=== PATIENT | male | born 1985 | race Native Hawaiian/Other Pacific Islander ===

== ENCOUNTER 2021-10-21 12:38 | Emergency (ER) | payer OTHER ==
--- NOTE | 2021-10-21 13:55 | ED ---
General Adult HPI - General Chief complaint: Chest Pain Stated complaint: chest pain Time Seen by Provider: 10/21/21 12:55 Source: patient Mode of arrival: wheelchair Limitations: no limitations - History of Present Illness Initial comments: 36 year-old male patient presents for evaluation of chest pain and elevated blood pressures. States that he has been having chest pain for a long time. States it has been more persistent this week. States his blood pressures have been elevated all week as well. States he is having weakness in his left arm. Left sided chest and shoulder pain. Posterior headache and intermittent dizziness. Denies shortness of breath. Reports intermittent sweats. Denies nausea or vomiting. States that he was given prescription for blood pressure medication but never started it due to fear of side effects. Patient denies any recent rash, fever, chills, cough, abdominal pain, diarrhea, constipation, back pain, numbness, tingling, hematuria, dysuria, urinary urgency, urinary frequency, visual changes, or any other complaints. - Related Data Previous Rx's Medication Instructions Recorded hydroCHLOROthiazide [Hydrodiuril] 25 mg PO DAILY #30 tab 10/21/21 Allergies Allergy/AdvReac Type Severity Reaction Status Date / Time No Known Allergies Allergy Verified 10/21/21 13:41 Review of Systems ROS Statement: Those systems with pertinent positive or pertinent negative responses have been documented in the HPI. ROS Other: All systems not noted in ROS Statement are negative. Past Medical History Past Medical History: Hypertension History of Any Multi-Drug Resistant Organisms: None Reported Past Surgical History: Cholecystectomy Past Psychological History: No Psychological Hx Reported Smoking Status: Current every day smoker Past Alcohol Use History: None Reported Past Drug Use History: None Reported General Exam Limitations: no limitations General appearance: alert, in no apparent distress, other (This is a well- developed, well-nourished adult male in no acute distress. ) Eye exam: Present: normal appearance, PERRL, EOMI. Absent: scleral icterus, conjunctival injection, nystagmus, periorbital swelling ENT exam: Present: normal exam, normal oropharynx, mucous membranes moist Respiratory exam: Present: normal lung sounds bilaterally. Absent: respiratory distress, wheezes, rales, rhonchi, stridor Cardiovascular Exam: Present: regular rate, normal rhythm, normal heart sounds. Absent: systolic murmur, diastolic murmur, rubs, gallop, clicks GI/Abdominal exam: Present: soft, normal bowel sounds. Absent: distended, tenderness, guarding, rebound, rigid Neurological exam: Present: alert, oriented X3, CN II-XII intact Expanded Speech: Present: fluid speech Cranial nerves: Nystagmus: Normal Motor strength exam: RUE: 5, LUE: 5, RLE: 5, LLE: 5 Psychiatric exam: Present: normal affect, normal mood Skin exam: Present: warm, dry, intact, normal color. Absent: rash Course Vital Signs 10/21/21 10/21/21 10/21/21 12:50 13:37 16:08 Temperature 97.6 F Pulse Rate 79 80 89 Respiratory 16 18 18 Rate Blood Pressure 181/103 164/104 165/115 O2 Sat by Pulse 98 98 100 Oximetry EKG Findings - EKG Comments: EKG Findings:: EKG obtained at 1304 shows normal sinus rhythm with sinus arrhythmia. Ventricular rate is 73, MS interval 152, QRS duration 84, QT 384, QTC 423. No evidence of ST elevation or depression. Medical Decision Making - Medical Decision Making 36-year-old male patient presented to the emergency department today for evalu ation of left-sided chest pain and elevated blood pressures for the last week. Physical examination is unremarkable. Lungs are clear to auscultation with good air movement. EKG was unremarkable. Blood pressures were elevated in the department. CT brain was negative. Was given a dose of labetalol. His blood pressures did improve mildly. To be discharged home with prescription for hydrochlorothiazide 25 mg daily. He is given 1 month prescription instructed to follow-up with his primary care physician for recheck as soon as possible. Instructed to keep a log of his blood pressures. Return parameters were discussed in detail. He verbalizes understanding and agrees with this plan. My attending is Dr. Montiel. - Lab Data Result diagrams: 10/21/21 13:37 10/21/21 13:37 Lab Results 10/21/21 10/21/21 10/21/21 Range/Units 13:37 13:37 13:37 WBC 7.6 (3.8-10.6) k/uL RBC 6.09 H (4.30-5.90) m/uL Hgb 17.5 (13.0-17.5) gm/dL Hct 52.0 (39.0-53.0) % MCV 85.4 (80.0-100.0) fL MCH 28.8 (25.0-35.0) pg MCHC 33.7 (31.0-37.0) g/dL RDW 13.0 (11.5-15.5) % Plt Count 262 (150-450) k/uL MPV 9.3 Neutrophils % 56 % Lymphocytes % 30 % Monocytes % 6 % Eosinophils % 6 % Basophils % 1 % Neutrophils # 4.2 (1.3-7.7) k/uL Lymphocytes # 2.3 (1.0-4.8) k/uL Monocytes # 0.4 (0-1.0) k/uL Eosinophils # 0.5 (0-0.7) k/uL Basophils # 0.0 (0-0.2) k/uL PT 10.4 (9.0-12.0) sec INR 1.0 (<1.2) APTT 25.2 (22.0-30.0) sec Sodium 142 (137-145) mmol/L Potassium 3.9 (3.5-5.1) mmol/L Chloride 102 (98-107) mmol/L Carbon Dioxide 26 (22-30) mmol/L Anion Gap 14 mmol/L BUN 10 (9-20) mg/dL Creatinine 1.07 (0.66-1.25) mg/dL Est GFR (CKD-EPI)AfAm >90 (>60 ml/min/1.73 sqM) Est GFR (CKD-EPI)NonAf >90 (>60 ml/min/1.73 sqM) Glucose 88 (74-99) mg/dL Calcium 9.7 (8.4-10.2) mg/dL Magnesium 2.0 (1.6-2.3) mg/dL Total Bilirubin 0.6 (0.2-1.3) mg/dL AST 22 (17-59) U/L ALT 24 (4-49) U/L Alkaline Phosphatase 91 (38-126) U/L Troponin I (0.000-0.034) ng/mL Total Protein 8.2 (6.3-8.2) g/dL Albumin 4.6 (3.5-5.0) g/dL Lipase 84 (23-300) U/L 12/25/21 Range/Units 13:37 WBC (3.8-10.6) k/uL RBC (4.30-5.90) m/uL Hgb (13.0-17.5) gm/dL Hct (39.0-53.0) % MCV (80.0-100.0) fL MCH (25.0-35.0) pg MCHC (31.0-37.0) g/dL RDW (11.5-15.5) % Plt Count (150-450) k/uL MPV Neutrophils % % Lymphocytes % % Monocytes % % Eosinophils % % Basophils % % Neutrophils # (1.3-7.7) k/uL Lymphocytes # (1.0-4.8) k/uL Monocytes # (0-1.0) k/uL Eosinophils # (0-0.7) k/uL Basophils # (0-0.2) k/uL PT (9.0-12.0) sec INR (<1.2) APTT (22.0-30.0) sec Sodium (137-145) mmol/L Potassium (3.5-5.1) mmol/L Chloride (98-107) mmol/L Carbon Dioxide (22-30) mmol/L Anion Gap mmol/L BUN (9-20) mg/dL Creatinine (0.66-1.25) mg/dL Est GFR (CKD-EPI)AfAm (>60 ml/min/1.73 sqM) Est GFR (CKD-EPI)NonAf (>60 ml/min/1.73 sqM) Glucose (74-99) mg/dL Calcium (8.4-10.2) mg/dL Magnesium (1.6-2.3) mg/dL Total Bilirubin (0.2-1.3) mg/dL AST (17-59) U/L ALT (4-49) U/L Alkaline Phosphatase (38-126) U/L Troponin I <0.012 (0.000-0.034) ng/mL Total Protein (6.3-8.2) g/dL Albumin (3.5-5.0) g/dL Lipase (23-300) U/L - Radiology Data Radiology results: report reviewed, image reviewed Two-view x-ray of the chest is obtained. Report is reviewed in its entirety. Impression by Dr. Beckham shows hyperinflation a related depth of inspiration her underlying emphysema. Correlate clinically. Otherwise no acute cardiopulmonary process. CT brain without contrast was obtained. Report was reviewed in its entirety. Impression by Dr. Beckham shows no acute intracranial abnormalities seen. Moderate chronic paranasal sinus disease, moderate to severe in the ethmoid air cells. Disposition Clinical Impression: Hypertension Disposition: HOME SELF-CARE Condition: Good Instructions (If sedation given, give patient instructions): DASH Eating Plan (ED), Hypertension (ED) Additional Instructions: Take medication as directed. Keep a log of your blood pressures for your primary care physician to better evaluate your needs. Return to the emergency department for any new, worsening, or concerning symptoms. Prescriptions: hydroCHLOROthiazide [Hydrodiuril] 25 mg PO DAILY #30 tab Is patient prescribed a controlled substance at d/c from ED?: No Referrals: Luis Enrique Smalls DO [Primary Care Provider] - 1-2 days Time of Disposition: 16:25
[2021-10-21 13:57] LABS: Basophils % (A) 1 %; Eosinophils # (A) 0.5 k/uL (0-0.7); Eosinophils % (A) 6 %; HGB 17.5 gm/dL (13.0-17.5); Lymphocytes # (A) 2.3 k/uL (1.0-4.8); Lymphocytes % (A) 30 %; MCH 28.8 pg (25.0-35.0); MCHC 33.7 g/dL (31.0-37.0); MCV 85.4 fL (80.0-100.0); Mean Platelet Volume 9.3; Monocytes # (A) 0.4 k/uL (0-1.0); Monocytes % (A) 6 %; Neutrophils # (A) 4.2 k/uL (1.3-7.7); Neutrophils % (A) 56 %; Platelet Count 262 k/uL (150-450); RBC 6.09 m/uL (4.30-5.90); WBC 7.6 k/uL (3.8-10.6)
[2021-10-21 14:02] LABS: Partial Thromboplastin Time 25.2 sec (22.0-30.0); Prothrombin Time 10.4 sec (9.0-12.0)
[2021-10-21 14:06] LABS: ALT 24 U/L (4-49); AST 22 U/L (17-59); African American GFR (CKD) >90 (>60 ml/min/1.73 sqM); Albumin 4.6 g/dL (3.5-5.0); Alkaline Phosphatase 91 U/L (38-126); Anion Gap 14 mmol/L; Blood Urea Nitrogen 10 mg/dL (9-20); Calcium 9.7 mg/dL (8.4-10.2); Carbon Dioxide 26 mmol/L (22-30); Chloride 102 mmol/L (98-107); Glucose 88 mg/dL (74-99); Lipase 84 U/L (23-300); Non-African American GFR(CKD) >90 (>60 ml/min/1.73 sqM); Potassium 3.9 mmol/L (3.5-5.1); Sodium 142 mmol/L (137-145); Total Bilirubin 0.6 mg/dL (0.2-1.3); Total Protein 8.2 g/dL (6.3-8.2)
--- NOTE | 2021-10-21 14:52 | XR ---
EXAMINATION TYPE: XR chest 2V DATE OF EXAM: 10/21/2021 COMPARISON: None HISTORY: 36-year-old male with chest pain and hypertension TECHNIQUE: PA and lateral views FINDINGS: The cardiomediastinal silhouette, aorta, and pulmonary vasculature are within normal limits. Mild hyp erinflation. Lungs and pleural spaces are clear. IMPRESSION: Hyperinflation may relate to depth of inspiration or underlying emphysema. Clinically correlate. Othe rwise, no acute cardiopulmonary process.
--- NOTE | 2021-10-21 15:49 | CT ---
EXAMINATION TYPE: CT brain wo con DATE OF EXAM: 10/21/2021 COMPARISON: None HISTORY: 36-year-old male hypertension, headaches TECHNIQUE: Examination was done in axial plane without intravenous contrast. Coronal and sagittal r econstructions performed. CT DLP: 1056.4 mGycm Automated exposure control for dose reduction was used. FINDINGS: There is no evidence of acute intracranial hemorrhage, acute ischemic changes, mass, mass-effect, or extra-axial fluid collection. There is no effacement of cerebral sulci or basal subarachnoid cister ns. There is no hydrocephalus. There is no midline shift. Travis-white matter distinction is preserv ed. Leftward nasal septal deviation. Moderate to severe mucosal thickening throughout the ethmoid air karyna ls and [id number] within the maxillary sinuses. Some partially visualized periodontal disease w ithin the maxilla. Possible small old blowout fracture medial right orbital wall on axial image 21. Otherwise, orbits an d globes appear intact. Mastoid air cells well pneumatized. IMPRESSION: No acute intracranial abnormality seen. Moderate chronic paranasal sinus disease, more moderate to se abbey in the ethmoid air cells.
[2021-10-21] MEDS: LABETALOL 5 MG/ML VIAL MDV IVP STA (16:05)
[2021-10-21 16:50] VITALS: BP 162/103; PULSE 79; RESP 16; TEMP 96.8
== END 2021-10-21 16:45 | disposition home or self-care (01) ==
LOC: EC 12:38
DX: I10 Essential (primary) hypertension (principal); F17.200 Nicotine dependence, unspecified, uncomplicated
CPT/HCPCS: 36415; 70450; 71046; 80053; 83690; 83735; 84484; 85025; 85610; 85730; 93005; 96374; 99285

== ENCOUNTER → 2023-08-21 | Outpatient (CLI) | payer SELFPAY ==
--- NOTE | 2023-08-21 13:44 | US ---
EXAMINATION TYPE: US scrotum with doppler. Grayscale and color Doppler Duplex imaging performed of becky olson scrotum. DATE OF EXAM: 08/21/2023 COMPARISON: NONE CLINICAL INDICATION: Male, 38 years old with history of N50.89 RT TESTICLE PAIN; Rt testicle pain beg an a few days ago, getting worse, no swelling EXAM MEASUREMENTS: TESTICLES: Right Testicle: 4.0x2.3x2.7 cm Left Testicle: 4.1x2.2x2.5 cm EPIDIDYMIS HEAD: Right Epididymis: 0.7 cm Left Epididymis: 0.7 cm Doppler performed to assess for testicular vascularity; good bilateral color flow and waveforms are s een. There is no evidence of testicular torsion. Presence of hydroceles: no Presence of varicoceles: left IMPRESSION: 1. Unremarkable scrotal ultrasound
== END | disposition home or self-care (01) ==
LOC: RADUSWWP 12:54
PROVIDERS: ATTEND Family Medicine
DX: N50.89 Other specified disorders of the male genital organs (principal)
CPT/HCPCS: 76870; 93975

== ENCOUNTER 2024-08-10 17:27 | Observation (INO) | payer OTHER ==
[2024-08-10 18:16] LABS: Basophils # (A) 0.1 k/uL (0-0.2); Basophils % (A) 1 %; Eosinophils # (A) 0.5 k/uL (0-0.7); Eosinophils % (A) 4 %; HCT 51.8 % (39.0-53.0); Lymphocytes # (A) 2.4 k/uL (1.0-4.8); Lymphocytes % (A) 21 %; MCH 28.1 pg (25.0-35.0); MCHC 34.8 g/dL (31.0-37.0); MCV 80.7 fL (80.0-100.0); Mean Platelet Volume 8.3; Monocytes # (A) 0.5 k/uL (0-1.0); Monocytes % (A) 4 %; Neutrophils # (A) 7.9 k/uL (1.3-7.7); Neutrophils % (A) 69 %; Platelet Count 312 k/uL (150-450); RBC 6.42 m/uL (4.30-5.90); RDW 13.8 % (11.5-15.5); WBC 11.4 k/uL (3.8-10.6)
[2024-08-10 18:25] LABS: Partial Thromboplastin Time 25.7 sec (22.0-30.0); Prothrombin Time 10.6 sec (10.0-12.5)
[2024-08-10 18:26] LABS: ALT 31 U/L (4-49); AST 22 U/L (17-59); African American GFR (CKD) 88 (>60 ml/min/1.73 sqM); Albumin 4.5 g/dL (3.5-5.0); Alkaline Phosphatase 102 U/L (38-126); Anion Gap 13 mmol/L; Blood Urea Nitrogen 9 mg/dL (9-20); Calcium 9.4 mg/dL (8.4-10.2); Carbon Dioxide 24 mmol/L (22-30); Chloride 105 mmol/L (98-107); Glucose 120 mg/dL (74-99); Magnesium 1.8 mg/dL (1.6-2.3); Non-African American GFR(CKD) 76 (>60 ml/min/1.73 sqM); Potassium 3.4 mmol/L (3.5-5.1); Sodium 142 mmol/L (137-145); Total Bilirubin 0.7 mg/dL (0.2-1.3); Total Protein 7.9 g/dL (6.3-8.2)
[2024-08-10] MEDS: LABETALOL 5 MG/ML VIAL MDV IVP STA (19:21)
[2024-08-10] MEDS: hydrALAZINE HCL 20 MG/ML 1 ML VIAL IVP STA (20:44)
[2024-08-10] MEDS: SODIUM CHLORIDE 0.9% 1,000 ML IV ONE ×2 (21:10→23:46)
[2024-08-10] MEDS: ONDANSETRON 4 MG/2 ML VIAL IVP STA (22:02)
--- NOTE | 2024-08-11 00:01 | ED ---
Headache HPI - General Chief Complaint: Headache Stated Complaint: Headache Time Seen by Provider: 08/10/24 18:25 Mode of arrival: ambulatory Limitations: no limitations - History of Present Illness Initial Comments: 39-year-old male with past medical history of hypertension who presents the emergency department reporting headache. States that he has had a headache for the past couple of days. Is located on the left side of his head. He denies taking anything for the pain. Also complaining of some chest pain and lightheadedness. Upon hospital arrival the patient's blood pressure is found to be extremely high. Admits to a history of high blood pressure however does not take any medications for it. He has not checked his blood pressure at home like he is supposed to over the past year. He denies any fevers. Does have some blurred vision. No other alleviating, precipitating modifying factors - Related Data Previous Rx's Medication Instructions Recorded hydroCHLOROthiazide [Hydrodiuril] 25 mg PO DAILY #30 tab 10/21/21 Allergies Allergy/AdvReac Type Severity Reaction Status Date / Time Penicillins Allergy Rash/Hives Verified 08/10/24 17:48 Review of Systems ROS Statement: Those systems with pertinent positive or pertinent negative responses have been documented in the HPI. ROS Other: All systems not noted in ROS Statement are negative. Past Medical History Past Medical History: Hypertension History of Any Multi-Drug Resistant Organisms: None Reported Past Surgical History: Cholecystectomy Past Psychological History: No Psychological Hx Reported Smoking Status: Current every day smoker Past Alcohol Use History: Occasional Past Drug Use History: None Reported General Exam Limitations: no limitations General appearance: alert, in no apparent distress Head exam: Present: atraumatic, normocephalic, normal inspection Eye exam: Present: normal appearance, PERRL, EOMI. Absent: scleral icterus, conjunctival injection, periorbital swelling ENT exam: Present: normal exam, mucous membranes moist Neck exam: Present: normal inspection. Absent: tenderness, meningismus, lymphadenopathy Respiratory exam: Present: normal lung sounds bilaterally. Absent: respiratory distress, wheezes, rales, rhonchi, stridor Cardiovascular Exam: Present: regular rate, normal rhythm, normal heart sounds. Absent: systolic murmur, diastolic murmur, rubs, gallop, clicks GI/Abdominal exam: Present: soft, normal bowel sounds. Absent: distended, tenderness, guarding, rebound, rigid Extremities exam: Present: normal inspection, full ROM, normal capillary refill. Absent: tenderness, pedal edema, joint swelling, calf tenderness Back exam: Present: normal inspection Neurological exam: Present: alert, oriented X3, CN II-XII intact Psychiatric exam: Present: normal affect, normal mood Skin exam: Present: warm, dry, intact, normal color. Absent: rash Course Vital Signs 08/10/24 08/10/24 08/10/24 17:43 20:11 22:30 Temperature 98.2 F Pulse Rate 94 81 77 Respiratory 18 17 18 Rate Blood Pressure 199/126 180/122 151/102 O2 Sat by Pulse 99 98 96 Oximetry 08/11/24 00:45 Temperature Pulse Rate 98 Respiratory 18 Rate Blood Pressure 129/110 O2 Sat by Pulse 99 Oximetry Medical Decision Making - Medical Decision Making Was pt. sent in by a medical professional or institution (SHAKILA Cummings, COMPLAINT EVALUATION SUPERVISOR, urgent care, hospital, or jail...) When possible be specific @ -No Did you speak to anyone other than the patient for history (EMS, parent, family, police, friend...)? What history was obtained from this source @ -No Did you review nursing and triage notes (agree or disagree)? Why? @ -I reviewed and agree with nursing and triage notes Were old charts reviewed (outside hosp., previous admission, EMS record, old EKG, old radiological studies, urgent care reports/EKG's, jail records)? Report findings @ -No old charts were reviewed Differential Diagnosis (chest pain, altered mental status, abdominal pain women, abdominal pain men, vaginal bleeding, weakness, fever, dyspnea, syncope, headache, dizziness, GI bleed, back pain, seizure, CVA, palpatations, mental health, musculoskeletal)? @ -Differential Headache: Migraine, tension, cluster, carbon monoxide, central venous thrombosis, pension karma temporal arteritis, acute closure glaucoma, intercranial hemorrhage, mas toiditis, sinusitis, head injury, this is not meant to be an all-inclusive list. EKG interpreted by me (3pts min.). @ - Completed at 1753 demonstrates sinus rhythm with a rate of 84. DC interval 157. QRS 76. QTc of 416. No acute ST segment elevations or depressions Repeat x-ray done at 2348 demonstrates A-fib with a rate of 128. QRS 84. QTc of 413. No acute ST segment elevations or depressions X-rays interpreted by me (1pt min.). @ -Yes and demonstrates no acute process CT interpreted by me (1pt min.). @ -Yes and demonstrates no acute process U/S interpreted by me (1pt. min.). @ -None done What testing was considered but not performed or refused? (CT, X-rays, U/S, labs)? Why? @ -None What meds were considered but not given or refused? Why? @ -Cardizem to control patient's rate however it is less than 120 consistently Did you discuss the management of the patient with other professionals (professionals i.e. , PA, COMPLAINT EVALUATION SUPERVISOR, lab, RT, psych nurse, manager social media, diesel power mechanic, teacher, senior credit officer, gearcase assembler)? Give summary @ -Spoke with Dr. Centeno for admission Was smoking cessation discussed for >3mins.? @ -No Was critical care preformed (if so, how long)? @ -No Were there social determinants of health that impacted care today? How? (Homelessness, low income, unemployed, alcoholism, drug addiction, transportation, low edu. Level, literacy, decrease access to med. care, retirement, rehab)? @ -No Was there de-escalation of care discussed even if they declined (Discuss DNR or withdrawal of care, Hospice)? DNR status @ -No What co-morbidities impacted this encounter? (DM, HTN, Smoking, COPD, CAD, Cancer, CVA, ARF, Chemo, Hep., AIDS, mental health diagnosis, sleep apnea, morbid obesity)? @ -Hypertension Was patient admitted / discharged? Hospital course, mention meds given and route, prescriptions, significant lab abnormalities, going to OR and other pertinent info. @ -Upon arrival patient seen and evaluated in room 21. Thorough history and physical exam was performed. IV access was established and laboratory studies are conducted. Patient was given labetalol without any improvement in his blood pressure. He is then given 20 mg of hydralazine. I ordered Tylenol and Zofran for the patient's headache however he refused these medications. Patient does appear to change rhythm and a repeat EKG was performed which demonstrates A-fib. CT was performed which demonstrates no acute intracranial process. I discussed results with the patient. Recommended admission for accelerated hypertension and new onset A-fib for which patient was agreeable. Spoke with Dr. Centeno for admission Undiagnosed new problem with uncertain prognosis? @ -No Drug Therapy requiring intensive monitoring for toxicity (Heparin, Nitro, Insulin, Cardizem)? @ -No Were any procedures done? @ -No Diagnosis/symptom? @ -Acute cephalgia, accelerated hypertension, new onset A-fib Acute, or Chronic, or Acute on Chronic? @ -Acute Uncomplicated (without systemic symptoms) or Complicated (systemic symptoms)? @ -Complicated Side effects of treatment? @ -No Exacerbation, Progression, or Severe Exacerbation? @ -No Poses a threat to life or bodily function? How? (Chest pain, USA, ME, pneumonia, PE, COPD, DKA, ARF, appy, cholecystitis, CVA, Diverticulitis, Homicidal, Suic idal, threat to staff... and all critical care pts) @ -No - Lab Data Result diagrams: 08/10/24 17:57 08/10/24 17:57 Lab Results 08/10/24 08/10/24 08/10/24 Range/Units 17:57 17:57 17:57 WBC 11.4 H (3.8-10.6) k/uL RBC 6.42 H (4.30-5.90) m/uL Hgb 18.0 H (13.0-17.5) gm/dL Hct 51.8 (39.0-53.0) % MCV 80.7 (80.0-100.0) fL MCH 28.1 (25.0-35.0) pg MCHC 34.8 (31.0-37.0) g/dL RDW 13.8 (11.5-15.5) % Plt Count 312 (150-450) k/uL MPV 8.3 Neutrophils % 69 % Lymphocytes % 21 % Monocytes % 4 % Eosinophils % 4 % Basophils % 1 % Neutrophils # 7.9 H (1.3-7.7) k/uL Lymphocytes # 2.4 (1.0-4.8) k/uL Monocytes # 0.5 (0-1.0) k/uL Eosinophils # 0.5 (0-0.7) k/uL Basophils # 0.1 (0-0.2) k/uL PT 10.6 (10.0-12.5) sec INR 1.0 (<1.2) APTT 25.7 (22.0-30.0) sec Sodium 142 (137-145) mmol/L Potassium 3.4 L (3.5-5.1) mmol/L Chloride 105 (98-107) mmol/L Carbon Dioxide 24 (22-30) mmol/L Anion Gap 13 mmol/L BUN 9 (9-20) mg/dL Creatinine 1.21 (0.66-1.25) mg/dL Est GFR (CKD-EPI)AfAm 88 (>60 ml/min/1.73 sqM) Est GFR (CKD-EPI)NonAf 76 (>60 ml/min/1.73 sqM) Glucose 120 H (74-99) mg/dL Calcium 9.4 (8.4-10.2) mg/dL Magnesium 1.8 (1.6-2.3) mg/dL Total Bilirubin 0.7 (0.2-1.3) mg/dL AST 22 (17-59) U/L ALT 31 (4-49) U/L Alkaline Phosphatase 102 (38-126) U/L Troponin I (0.000-0.034) ng/mL Total Protein 7.9 (6.3-8.2) g/dL Albumin 4.5 (3.5-5.0) g/dL 08/10/24 Range/Units 17:57 WBC (3.8-10.6) k/uL RBC (4.30-5.90) m/uL Hgb (13.0-17.5) gm/dL Hct (39.0-53.0) % MCV (80.0-100.0) fL MCH (25.0-35.0) pg MCHC (31.0-37.0) g/dL RDW (11.5-15.5) % Plt Count (150-450) k/uL MPV Neutrophils % % Lymphocytes % % Monocytes % % Eosinophils % % Basophils % % Neutrophils # (1.3-7.7) k/uL Lymphocytes # (1.0-4.8) k/uL Monocytes # (0-1.0) k/uL Eosinophils # (0-0.7) k/uL Basophils # (0-0.2) k/uL PT (10.0-12.5) sec INR (<1.2) APTT (22.0-30.0) sec Sodium (137-145) mmol/L Potassium (3.5-5.1) mmol/L Chloride (98-107) mmol/L Carbon Dioxide (22-30) mmol/L Anion Gap mmol/L BUN (9-20) mg/dL Creatinine (0.66-1.25) mg/dL Est GFR (CKD-EPI)AfAm (>60 ml/min/1.73 sqM) Est GFR (CKD-EPI)NonAf (>60 ml/min/1.73 sqM) Glucose (74-99) mg/dL Calcium (8.4-10.2) mg/dL Magnesium (1.6-2.3) mg/dL Total Bilirubin (0.2-1.3) mg/dL AST (17-59) U/L ALT (4-49) U/L Alkaline Phosphatase (38-126) U/L Troponin I <0.012 (0.000-0.034) ng/mL Total Protein (6.3-8.2) g/dL Albumin (3.5-5.0) g/dL Disposition Clinical Impression: Cephalgia, Accelerated hypertension, New onset a-fib Disposition: ADMITTED IP TO THIS [facility] Condition: Stable Is patient prescribed a controlled substance at d/c from ED?: No Time of Disposition: 00:36 Decision to Admit Reason: Admit from EC Decision Date: 08/11/24 Decision Time: 00:36
[2024-08-11] MEDS: ACETAMINOPHEN TAB 500 MG TAB PO STA ×2 (00:27→06:47)
[2024-08-11] MEDS: DEXAMETHASONE SOD PHOSPHATE 10 MG/ML 1 ML VIAL IVP STA (00:27)
[2024-08-11] MEDS ORDERED: NALOXONE 0.4 MG/ML 1 ML VIAL IV PRN (00:37)
--- NOTE | 2024-08-11 00:41 | CT ---
EXAMINATION TYPE: CT brain wo con CT DLP: 1074.4 mGycm, Automated exposure control for dose reduction was used. DATE OF EXAM: 08/10/2024 7:34 PM COMPARISON: None.. CLINICAL INDICATION:Male, 39 years old with history of htn emergency, headache, Hypertension and dizz iness x 1 day TECHNIQUE: Brain: Axial CT images of the brain were obtained with coronal and sagittal reformats created and rev iewed. Contrast used: None. Oral contrast used: None. FINDINGS: Extra-axial spaces: No abnormal extra-axial fluid collections. Basilar cisterns are patent. Ventricular system: Within normal limits. Cerebral parenchyma: No increased attenuation to suggest acute intraparenchymal hemorrhage. The gra y-white matter interface appears maintained. No significant atrophy. White matter unremarkable by C T. Cerebellum: No acute abnormality. Mass effect: No evidence of mass effect or midline shift. Intracranial vasculature: Unremarkable Soft tissues: No acute or concerning abnormality. Visualized orbits: Orbital contents appear grossly intact. Calvarium/osseous structures: No evidence of calvarial fracture. Paranasal sinuses and mastoid air cells: No significant fluid accumulation seen. Moderate scattered m ucosal thickening in the paranasal sinuses. MRI is more sensitive for detecting acute processes such as infarct, and may be considered if clinica lly warranted. IMPRESSION: 1. No acute intracranial CT abnormality. 2. Paranasal sinus disease. [facility], , 08/11/2024 12:39 AM
[2024-08-11] MEDS: SODIUM CHLORIDE 0.9% 1,000 ML IV SCH (00:45)
--- NOTE | 2024-08-11 05:28 | XR ---
EXAMINATION TYPE: XR chest 2V DATE OF EXAM: 08/10/2024 6:27 PM CLINICAL INDICATION:Male, 39 years old with history of Chest Pain; [facility] COMPARISON: None TECHNIQUE: XR chest 2V. Frontal and lateral views of the chest.. FINDINGS: Lines/Tubes/Devices: No indwelling lines are seen. Heart/mediastinum: Heart size is normal. Mediastinum appears normal. Pulmonary vascularity: Not increased, Lungs/Pleura: There is no evidence of pleural effusion, focal consolidation, or pneumothorax. Musculoskeletal: No acute osseous abnormality demonstrated in the limits of the exam. Mild eventrati on along the hemidiaphragms. Other findings: None. IMPRESSION: No acute cardiopulmonary abnormality. [facility], , 08/11/2024 5:26 AM
[2024-08-11] MEDS: METOPROLOL SUCCINATE (ER) 50 MG TAB.ER.24H PO SCH (09:23)
[2024-08-11] MEDS: LOSARTAN 25 MG TAB PO SCH (09:24)
[2024-08-11] MEDS: HEPARIN SODIUM,PORCINE 5,000 UNIT/ML 1 ML VIAL SQ SCH (10:59)
--- NOTE | 2024-08-11 11:38 | P.CRDCN ---
History of Present Illness Consult date: 08/11/24 Reason for Consult (text): New onset atrial fibrillation Consult reason: atrial fibrillation History of present illness: HPI: Patient is a 39 year old male with past medical history of hypertension presented to the ED on 08/10 evening with complaints of headache that has been going on for the past few days. Patient stated the headache started when he woke up Saturday morning and gradually got worse hence patient decided to come to the ED for evaluation. The headache is mostly located on the left side and would radiate down toward left side of the neck. Nothing made it better or worse thus far. Patient also reported some chest pain, lightheadedness, nausea, vomiting, and blurry vision. Patient does not take home blood pressure medications. Upon presenting to the ED, his blood pressure was found to be extremely high at 199/126. In the ED, one time labetalol 20 mg and hydralazine 20 mg were given which lowered patient's blood pressure. His past surgical history is significant for cholecystectomy which he got many years ago. He smokes about half a pack to a pack a day for the past 10 years. He drinks alcohol occasionally, not a heavy drinker. No recreational drug use. His father has a history of atrial fi brillation. In the ED, initial EKG showed atrial fibrillation with rapid ventricular rate. Brain CT showed no acute intracranial abnormality. Chest X ray showed no acute pulmonary processes. CBC showed WBC of 11.4, hemoglobin 18, hematocrit 51.8, platelet 312. CMP showed sodium 142, potassium 3.4, chloride 105, carbon dioxide 24, BUN 9, creatinine 1.21, glucose 120. Initial troponin was 0.012 which subsequently increased to 0.057 the most recent troponin. Other than the hypertension, patient does not have other medical problems, no history of heart disease or arrythmias. TSH was 0.641. His current heart rate is slightly tachycardia in the 120s. Normal respiratory rate. Most recent BP was 144/120. O2 saturation at 98% on room air. Review of Systems: Constitutional: Denies chills, Denies fever Eyes: Reports blurred vision Ears, nose, mouth and throat: Reports headache, Denies sore throat Cardiovascular: Denies chest pain, Denies shortness of breath Respiratory: Denies cough Gastrointestinal: Denies abdominal pain, Denies diarrhea, Reports nausea, Reports vomiting Musculoskeletal: Denies myalgias Integumentary: Denies pruritus, Denies rash Neurological: Reports numbness, Denies weakness Psychiatric: Denies anxiety, Denies depression Endocrine: Denies fatigue, Denies weight change PMH: Hypertension PSH: Cholecystectomy Social History: 10 year smoking history smokes about 0.5-1 pack a day. Occasional alcohol use. No recreational drug use. Family History: Father has a history of atrial fibrillation Physical Exam: General: The patient is awake and alert, in no distress, and does not appear acutely ill. Eye: Pupils are equal, round and reactive to light, extra-ocular movements are intact; there is normal conjunctiva bilaterally. Ears, nose, mouth and throat: There are moist mucous membranes and no oral lesions. TM and canals were not examined Neck: The neck is supple, there is no thyromegaly, lymphadenopathy, tenderness or JVD. Cardiovascular: S1S2 is normal, There is irregular rate. No murmur, rub or gallop is appreciated. Respiratory: Lungs are clear to auscultation bilaterally, respirations are non-labored, breath sounds are equal. Gastrointestinal: Soft, non-distended, non-tender abdomen without masses or organomegaly noted. There is no rebound or guarding present. Bowel sounds are unremarkable. Musculoskeletal: Normal ROM, no tenderness, There is no pedal edema. There is no calf tenderness or swelling. No cords were appreciated. Neurological: CN II-XII intact, there are no obvious motor or sensory deficits. Coordination appears grossly intact. Speech is normal. Skin: Skin is warm and dry and no rashes or lesions are noted. Psychiatric: Cooperative, appropriate mood & affect, normal judgment. Previous cardiac workup: No previous documentation of echo cardiogram, stress test, cardiac catheterization. Impression 1. New onset atrial fibrillation with rapid ventricular rate 2. Hypertension 3. NSTEMI 4. Headache- consult neurology 5. Leukocytosis Plan: We will order an echocardiogram. Neurology will be consulted to evaluate headache and if it is safe to put patient on anticoagulation due to atrial fibrillation. Patient is currently on heparin subcu for anticoagulation. We will start patient on losartan 25 mg p.o. daily and metoprolol succinate ER 50 mg p.o. daily. We will continue to monitor the patient. Past Medical History Past Medical History: Hypertension History of Any Multi-Drug Resistant Organisms: None Reported Past Surgical History: Cholecystectomy Past Psychological History: No Psychological Hx Reported Smoking Status: Current every day smoker Past Alcohol Use History: Occasional Past Drug Use History: None Reported Medications and Allergies Home Medications Medication Instructions Recorded Confirmed Type Aspirin 325 mg PO DAILY tab 08/12/24 Rx Doxycycline [Vibramycin] 100 mg PO BID cap 08/12/24 Rx Losartan [Cozaar] 50 mg PO DAILY tab 08/12/24 Rx Metoprolol Succinate (ER) [Toprol 50 mg PO DAILY tab 08/12/24 Rx XL] amLODIPine [Norvasc] 5 mg PO DAILY tab 08/12/24 Rx Allergies Allergy/AdvReac Type Severity Reaction Status Date / Time Penicillins Allergy Rash/Hives Verified 08/11/24 07:44 Physical Exam Vitals: Vital Signs Temp Pulse Resp BP Pulse Ox 08/11/24 09:19 112 H 16 134/101 98 08/11/24 06:00 116 H 16 140/92 98 08/11/24 03:04 111 H 16 144/111 98 08/11/24 00:45 98 18 129/110 99 08/10/24 22:30 77 18 151/102 96 08/10/24 20:11 81 17 180/122 98 08/10/24 17:43 98.2 F 94 18 199/126 99 Intake and Output 08/10/24 08/11/24 08/11/24 22:59 06:59 14:59 Other: Weight 63.503 kg Results 08/12/24 06:02 08/12/24 06:02 Cardiac Enzymes 08/10/24 08/10/24 08/11/24 Range/Units 17:57 17:57 06:45 AST 22 (17-59) U/L Troponin I <0.012 0.039 H* (0.000-0.034) ng/mL 08/11/24 Range/Units 09:26 AST (17-59) U/L Troponin I 0.057 H* (0.000-0.034) ng/mL Coagulation 08/10/24 Range/Units 17:57 PT 10.6 (10.0-12.5) sec APTT 25.7 (22.0-30.0) sec CBC 08/10/24 Range/Units 17:57 WBC 11.4 H (3.8-10.6) k/uL RBC 6.42 H (4.30-5.90) m/uL Hgb 18.0 H (13.0-17.5) gm/dL Hct 51.8 (39.0-53.0) % Plt Count 312 (150-450) k/uL Comprehensive Metabolic Panel 08/10/24 Range/Units 17:57 Sodium 142 (137-145) mmol/L Potassium 3.4 L (3.5-5.1) mmol/L Chloride 105 (98-107) mmol/L Carbon Dioxide 24 (22-30) mmol/L BUN 9 (9-20) mg/dL Creatinine 1.21 (0.66-1.25) mg/dL Glucose 120 H (74-99) mg/dL Calcium 9.4 (8.4-10.2) mg/dL AST 22 (17-59) U/L ALT 31 (4-49) U/L Alkaline Phosphatase 102 (38-126) U/L Total Protein 7.9 (6.3-8.2) g/dL Albumin 4.5 (3.5-5.0) g/dL Current Medications Generic Name Dose Route Start Last Admin Trade Name Freq PRN Reason Stop Dose Admin Sodium Chloride 1,000 mls @ 130 mls/hr 08/11/24 00:45 08/11/24 09:25 Saline 0.9% IV 130 mls/hr .[id number] JYOTI Administration Losartan Potassium 25 mg 08/11/24 09:00 08/11/24 09:24 Losartan 25 Mg Tab PO 25 mg DAILY JYOTI Administration Metoprolol Succinate 50 mg 08/11/24 09:00 08/11/24 09:23 Metoprolol Succinate (Er) 50 Mg Tab.Er.24h PO 50 mg DAILY JYOTI Administration Naloxone HCl 0.2 mg 08/11/24 00:37 Naloxone 0.4 Mg/Ml 1 Ml Vial IV Q2M PRN Opioid Reversal Intake and Output 08/10/24 08/11/24 08/11/24 22:59 06:59 14:59 Other: Weight 63.503 kg 08/10/24 17:57 08/10/24 17:57
--- NOTE | 2024-08-11 11:46 | CONS ---
CONSULTATION This is a 39-year-old gentleman I have seen in the emergency room. I performed history and physical and clinical decision making that has been scribed by medical practice assistant for me. He is a 39-year-old gentleman with history of hypertension, who was not taking any medications, presents to hospital primarily with headache of 2 days duration. His blood pressures were severely elevated on his presentation. He received intravenous hydralazine with improvement in his blood pressures by the time I evaluated the patient in the ER. He was around 140/90 mm. We are starting him on Toprol-XL 50 mg daily and losartan 25 and we will adjust the medications as needed. At the time of my evaluation, the patient does not have any cardiac symptoms. He denies any chest pain, difficulty in breathing, or leg edema. His predominant symptom is headache and the exact etiology of which is unclear. He had a CT scan of the brain, that is negative, and I have requested a consult from a neurologist to address the issue of headache further. His troponins are mildly elevated at 0.03 and 0.05. EKG shows atrial fibrillation with rapid ventricular rate with ST-T wave changes probably related to left ventricular hypertrophy. We also have an EKG, where he converted to sinus rhythm. At the time of my evaluation, he is again in atrial fibrillation with somewhat of a poorly controlled ventricular rate. I am going to obtain a 2D echo to evaluate his LV function. His troponin elevation could be related to the atrial fibrillation with rapid ventricular rate. I am going to start the patient on IV heparin for his atrial fibrillation once the neurologist evaluates the patient and addresses the issue of headache. I discussed these issues at length with the patient. He understands and in agreement with the plans. MMJOSL / JOHANAN: [id number] / JULY
--- NOTE | 2024-08-11 12:53 | CT ---
EXAMINATION TYPE: CT angio head neck CT DLP: 420.1 mGycm, Automated exposure control for dose reduction was used. DATE OF EXAM: 08/11/2024 12:44 PM COMPARISON: CT brain and 1424. CLINICAL INDICATION:Male, 39 years old with history of CVA; PHH, Hypertension, SIDDIQUI, blurred vision TECHNIQUE: Axially acquired helical CT angiogram of the head and neck was obtained with contrast util izing 75 cc of Isovue-370 administered intravenously. Axial images are supplemented with 3D reconstru ctions which were post-processed at an independent workstation. NASCET criteria used. FINDINGS: CTA HEAD: No evidence of acute intracranial hemorrhage, mass effect, or midline shift. The ventricles, sulci, a nd cisterns are unremarkable. The visualized portions of the internal carotid arteries, middle cerebral arteries, anterior cerebral arteries, and posterior cerebral arteries are patent. The basilar and vertebral arteries are patent. Right vertebral artery is dominant. CTA NECK: Right Carotid System: The common carotid artery and external carotid artery are patent. The carotid bifurcation demonstrate s no evidence of hemodynamically significant stenosis. The remaining portions of the internal carotid artery demonstrate normal size without significant narrowing. Left Carotid System: The common carotid artery and external carotid artery are patent. The carotid bifurcation demonstrate s no evidence of hemodynamically significant stenosis. The remaining portions of the internal carotid artery demonstrate normal size without significant narrowing. Vertebral arteries are patent without evidence hemodynamically significant stenosis. There is a bovine aortic arch. The origins of the great vessels are patent. No evidence of hemodynami mihir significant stenosis. Mucosal thickening of the ethmoid sinuses and right sphenoid sinus. Mildly enlarged bilateral jugular lymph nodes with example including a right lymph node measuring 1 cm short axis (series 401, image 9 6). IMPRESSION: 1. No evidence of dissection of the cervical internal carotid arteries or vertebral arteries or any e vidence of significant stenosis at the carotid bifurcations. 2. No evidence of high-grade stenosis or intracranial aneurysm. 3. Mildly enlarged bilateral jugular lymph nodes which may be reactive. 4. Paranasal sinus disease. [facility], , 08/11/2024 12:51 PM
--- NOTE | 2024-08-11 15:01 | CA ---
Transthoracic Echo Report Name: Oracio Navarro Age: 39 Gender: M : 1985 Exam Date: 08/11/2024 10:43 Exam Location: [facility] Ht (in): 64 Wt (lb): 140 Ordering Physician: Whit Garcia Attending/Referring Phys: [id number], Radha Enterprise Integration Developer Genie Romero, KENDRICK Procedure CPT: Indications: LV function, new onset afib, uncontrolled BP Cardiac Hx: Technical Quality: Good Contrast 1: Total Dose (mL): Contrast 2: Total Dose (mL): MEASUREMENTS (Male / Female) Normal Values 2D ECHO LV Diastolic Diameter PLAX 4.1 cm 4.2 - 5.9 / 3.9 - 5.3 cm LV Systolic Diameter PLAX 2.8 cm IVS Diastolic Thickness 1.4 cm 0.6 - 1.0 / 0.6 - 0.9 cm LVPW Diastolic Thickness 1.0 cm 0.6 - 1.0 / 0.6 - 0.9 cm LV Relative Wall Thickness 0.6 RV Internal Dim ED PLAX 3.1 cm LA Systolic Diameter LX 3.5 cm 3.0 - 4.0 / 2.7 - 3.8 cm LV Diastolic Volume MOD BP 59.6 cm??? 67 - 155 / 56 - 104 cm??? LV Systolic Volume MOD BP 33.5 cm??? - 58 / 19 - 49 cm??? LV Ejection Fraction MOD BP 43.8 % >= 55 % LV Cardiac Index MOD BP 1823.5 cm???/min???m??? LV Diastolic Volume MOD 4C 77.1 cm??? LV Systolic Volume MOD 4C 40.1 cm??? LV Ejection Fraction MOD 4C 48.1 % LV Cardiac Index MOD 4C 2592.0 cm???/min???m??? LV Diastolic Length 4C 7.5 cm LV Systolic Length 4C 6.2 cm LV Diastolic Volume MOD 2C 83.9 cm??? LV Systolic Volume MOD 2C 36.8 cm??? LV Ejection Fraction MOD 2C 56.1 % LV Cardiac Index MOD 2C 3289.2 cm???/min???m??? LV Diastolic Length 2C 7.5 cm LV Systolic Length 2C 5.9 cm LA Volume 46.7 cm??? 18 - 58 / 22 - 52 cm??? LA Volume Index 27.4 cm???/m??? 16 - 28 cm???/m??? M-MODE Aortic Root Diameter MM 3.5 cm AV Cusp Separation MM 2.3 cm DOPPLER AV Peak Velocity 117.2 cm/s AV Peak Gradient 5.5 mmHg MV Area PHT 5.1 cm??? MV Deceleration Time 170.9 ms FINDINGS Left Ventricle Left ventricular ejection fraction is estimated at 50-55 %. Left ventricular cavity size normal. Mildly increased septal wall thickness. Right Ventricle Normal right ventricular size and function. Unable to estimate the right ventricular systolic pressure. Right Atrium Normal right atrial size. No right atrial thrombus or mass seen. Left Atrium Normal left atrial size. No left atrial thrombus or mass present. Mitral Valve Structurally normal mitral valve. Trace to mild mitral regurgitation. Aortic Valve Trileaflet aortic valve. No aortic valve stenosis or regurgitation. Tricuspid Valve Structurally normal tricuspid valve. No tricuspid stenosis, regurgitation or prolapse. Pulmonic Valve Structurally normal pulmonic valve. No pulmonic regurgitation. Pericardium No pericardial or pleural effusion. Aorta Normal size aortic root and proximal ascending aorta. CONCLUSIONS Left ventricular ejection fraction 50-55% Mildly increased left ventricular wall thickness Trace to mild mitral regurgitation No pericardial effusion Previewed by: Dr. Panda Medellin DO (Electronically Signed) Final Date: 11 August 2024 15:00
[2024-08-11 15:20] LABS: Glucose,Whole Blood 108 mg/dL (70-110)
--- NOTE | 2024-08-11 15:24 | P.CNNES ---
History of Present Illness Consult date: 08/11/24 Requesting physician: Whit Garcia Reason for Consult: headache, safe to anticoagulate? History of Present Illness: Patient is a 39-year-old right-handed male came to the hospital yesterday at 5:27 PM for cephalgia, nausea vomiting dizziness. Patient states that he woke up on Saturday morning, 2 days ago with headache involving the whole head extending to the left side of the neck. He checked his blood pressure, which was quite high, 167/112. Usually he sometimes runs high blood pressure but not that much. He does have hypertension for about last couple years but not being treated. Patient also started having some chest pain and lightheadedness, therefore came to the ER. The headache is throbbing, 08/06. Patient states that he started having nausea vomiting last night through this a.m. He denies any photophobia or phonophobia. He feels dizzy when he gets adjusted or when he rolls over in the bed. Any quick movement produces dizziness. Patient denies any numbness or tingling as his symptoms persisted, came to the ER for evaluation. Patient was found to have atrial fibrillation with rapid ventricular rate. Patient denies any focal weakness, speech difficulty. He does complain of blurred vision since Saturday but denies any loss of vision or diplopia. He denies any upper respiratory infection, any recent cold. He does have some runny nose occasionally. Patient states that with his dizziness, he has felt almost as if he will pass out "a few times". Patient denies any history of migraines or any regular headaches. Patient admits to smoking half to 1 pack/day for last 20 years. Denies any marijuana use. Drinks alcohol once in a while. Denies diabetes. Vital signs on arrival blood pressure 199/126, which came down to 180/122 and then 151/102. Respiration is 18, pulse rate 94, temperature 98.2. Blood test shows normal WBC 11.4, hemoglobin 18.0, platelets 312. PT PTT is normal. Sodium is normal potassium borderline 3.4. Renal functions, hepatic panel is normal troponin is now slightly elevated 0.039. EKG showed atrial fibrillation with rapid ventricular rate at 120. Chest x-ray showed no acute cardiopulmonary abnormality. CT head revealed no acute intracranial process. Paranasal sinus disease. On my review, there is moderate amount of ethmoid sinusitis bilaterally. Also there is mucosal thickening of bilateral maxillary sinuses. Frontal and sphenoid sinuses appears clear. Review of Systems All pertinent positive and negative review of systems mentioned in the HPI. Otherwise negative. Patient does complain of dental pain. He does have history of dental infection off and on for almost a year. He has had course of antibiotics. Past Medical History Past Medical History: Hypertension History of Any Multi-Drug Resistant Organisms: None Reported Past Surgical History: Cholecystectomy Past Psychological History: No Psychological Hx Reported Smoking Status: Current every day smoker Past Alcohol Use History: Occasional Past Drug Use History: None Reported Medications and Allergies Home Medications Medication Instructions Recorded Confirmed Type No Known Home Medications 08/11/24 08/11/24 History Allergies Allergy/AdvReac Type Severity Reaction Status Date / Time Penicillins Allergy Rash/Hives Verified 08/11/24 07:44 Physical Examination - Vital Signs Vital Signs: Vital Signs Temp Pulse Resp BP Pulse Ox 08/11/24 09:19 112 H 16 134/101 98 08/11/24 06:00 116 H 16 140/92 98 08/11/24 03:04 111 H 16 144/111 98 08/11/24 00:45 98 18 129/110 99 08/10/24 22:30 77 18 151/102 96 08/10/24 20:11 81 17 180/122 98 08/10/24 17:43 98.2 F 94 18 199/126 99 Intake and Output 08/10/24 08/11/24 08/11/24 22:59 06:59 14:59 Other: Weight 63.503 kg Patient is a young male, in no acute distress. Patient is alert awake oriented to time place and person. Speech and language functions are normal. Patient can name and repeat very well. No aphasia or dysarthria. Attention, concentration and fund of knowledge is adequate. On cranial nerve examination, pupils are equal, round and reacting to light, visual brambila are full on confrontation, with no neglect on double simultaneous stimulation. Extraocular muscles are intact with no nystagmus. Face is symmetric, tongue protrudes to the midline. Palatal elevation and sensation normal, hearing and shoulder shrug normal, facial sensation normal. On muscle strength testing, there is mild drift on the left. However the muscle strength is normal in arms and legs distally and proximally. Deep tendon reflexes are symmetric 1+ and plantars downgoing. Sensory to touch is equal with no neglect on double simultaneous stimulation. Cerebellar function showed very significant ataxia for [id number]-br-ahlm testing only on the left side. Patient has mild to moderate ataxia for [id number]-sm-[id number] testing on the left side only. Tone and bulk of muscles normal. Gait deferred.. On general examination, there is no carotid bruit or murmur, S1-S2 audible. Chest is clear on consultation. Abdomen is soft nontender. No organomegaly, bowel sounds present. Peripheral pulses are present. No peripheral edema. Results - Laboratory Findings CBC and BMP: 08/10/24 17:57 08/10/24 17:57 Abnormal Lab Findings: Abnormal Labs 08/10/24 08/10/24 08/11/24 17:57 17:57 06:45 WBC 11.4 H RBC 6.42 H Hgb 18.0 H Neutrophils # 7.9 H Potassium 3.4 L Glucose 120 H Troponin I 0.039 H* 08/11/24 09:26 WBC RBC Hgb Neutrophils # Potassium Glucose Troponin I 0.057 H* Assessment and Plan Assessment: * 39-year-old male presented with headache and more recent onset of nausea vomiting and dizziness. Examination revealed ataxia involving the left arm and left leg. Rule out cerebellar stroke. CT head reported negative, but on my review, there is evidence of possible hypodensity in the cortex of left cerebellar hemisphere, suggestive of subacute infarction, although artifact is also in the differential. * New onset atrial fibrillation * Hypertension, recently worse * Elevated cardiac enzymes * History of dental abscess, treated * Tobacco use Plan: * Stat MRI of the brain without contrast, evaluate for acute CVA, rule out any hemorrhagic conversion. Patient may need IV heparin if no hemorrhagic conversion. Cardiology on board. * 2-D echo with bubble study to rule out PFO * Stat CTA head and neck was done, which revealed no evidence of dissection of the cervical internal carotid arteries or vertebral arteries or any evidence of significant stenosis at the carotid bifurcations. No evidence of high- grade stenosis or intracranial aneurysm. Mildly enlarged bilateral jugular lymph nodes which may be reactive. Paranasal sinus disease. * Patient's NIH stroke scale is 2 related to ataxia involving the left upper and lower extremity. Patient not a candidate for tPA, as unknown last known well. No large vessel occlusion noted. * Fasting a.m. lipid panel * Hemoglobin A1c * Permissive hypertension for next 24-48 hours * Start aspirin 325 mg daily. * Neuro checks every 2 hours * Telemetry monitoring rule out any arrhythmia * PT, OT, speech therapy * DVT prophylaxis: Heparin 5000 units subcu every 8 hours * Recommend complete tobacco cessation. * Neurology will continue to follow. Thank you for the consult. Time with Patient: Greater than 30
--- NOTE | 2024-08-11 16:58 | MR ---
EXAMINATION TYPE: MR brain wo con DATE OF EXAM: 08/11/2024 4:52 PM CLINICAL INDICATION: Male, 39 years old with history of CVA; PHH, CVA COMPARISON: 08/10/2024. TECHNIQUE: Multi planar, multi sequence imaging was performed through the brain including: T1, T2, In version recovery, Diffusion weighted imaging, and gradient echo imaging. No gadolinium was given. FINDINGS: Restricted diffusion within the inferior left cerebral hemisphere end mildly into the media l aspect of the right cerebellar hemisphere in the distribution of the posterior inferior cerebellar artery. The nolasco-white junctions, ventricular system, basal cisterns appear unremarkable. . Midline structu res show no abnormality. The susceptibility weighted images do not reveal any evidence for micro-hem orrhage. The bone marrow signal is within normal limits. Paranasal sinuses and mastoid air cells: Mild scattered paranasal sinus disease. Visualized orbits: Orbital contents are intact. IMPRESSION: Acute/subacute CVA involving the left anterior cerebellar hemisphere in the distribution of the poste rior inferior cerebellar artery. Is restricted diffusion does cross midline to the right cerebellar h emisphere slightly. [facility], Workstation: [id number], 08/11/2024 4:56 PM
[2024-08-11] MEDS: ASPIRIN 81 MG PO STA (17:01)
[2024-08-12] MEDS: ACETAMINOPHEN TAB 325 MG TAB PO PRN (00:23)
[2024-08-12 06:18] LABS: Basophils % (A) 0 %; Eosinophils # (A) 0.1 k/uL (0-0.7); Eosinophils % (A) 1 %; HCT 48.4 % (39.0-53.0); HGB 16.3 gm/dL (13.0-17.5); Lymphocytes # (A) 2.1 k/uL (1.0-4.8); Lymphocytes % (A) 13 %; MCH 27.9 pg (25.0-35.0); MCHC 33.6 g/dL (31.0-37.0); MCV 83.1 fL (80.0-100.0); Mean Platelet Volume 7.8; Monocytes # (A) 0.9 k/uL (0-1.0); Monocytes % (A) 5 %; Neutrophils # (A) 13.4 k/uL (1.3-7.7); Neutrophils % (A) 81 %; Platelet Count 321 k/uL (150-450); RBC 5.83 m/uL (4.30-5.90); RDW 13.5 % (11.5-15.5); WBC 16.7 k/uL (3.8-10.6)
[2024-08-12 06:37] LABS: African American GFR (CKD) >90 (>60 ml/min/1.73 sqM); Anion Gap 10 mmol/L; Blood Urea Nitrogen 12 mg/dL (9-20); Calcium 9.5 mg/dL (8.4-10.2); Carbon Dioxide 27 mmol/L (22-30); Chloride 102 mmol/L (98-107); Glucose 130 mg/dL (74-99); Non-African American GFR(CKD) 82 (>60 ml/min/1.73 sqM); Potassium 3.4 mmol/L (3.5-5.1); Sodium 139 mmol/L (137-145)
[2024-08-12] MEDS: ASPIRIN 325 MG TAB PO SCH (08:25)
[2024-08-12] MEDS ORDERED: LOSARTAN 50 MG TAB PO SCH (09:00)
[2024-08-12] MEDS: HYDROmorphone 0.5 MG/0.5 ML SYRINGE IVP PRN (09:11)
[2024-08-12] MEDS: LOSARTAN 25 MG TAB PO STA (09:11)
[2024-08-12] MEDS: amLODIPine 5 MG TAB PO SCH (09:11)
[2024-08-12 10:44] LABS: Chol/HDL Ratio 4.54 Ratio; LDL Cholesterol,Calculated 118.5 mg/dL (0.0-131.0)
[2024-08-12 11:12] VITALS: TEMP 98.1
--- NOTE | 2024-08-12 11:57 | P.PN ---
Subjective HISTORY OF PRESENT ILLNESS: HPI: Patient is a 39 year old male with past medical history of hypertension presented to the ED on 08/10 evening with complaints of headache that has been going on for the past few days. Patient stated the headache started when he woke up Saturday morning and gradually got worse hence patient decided to come to the ED for evaluation. The headache is mostly located on the left side and would radiate down toward left side of the neck. Nothing made it better or worse thus far. Patient also reported some chest pain, lightheadedness, nausea, vomiting, and blurry vision. Patient does not take home blood pressure medications. Upon presenting to the ED, his blood pressure was found to be extremely high at 199/126. In the ED, one time labetalol 20 mg and hydralazine 20 mg were given which lowered patient's blood pressure. His past surgical history is significant for cholecystectomy which he got many years ago. He smokes about half a pack to a pack a day for the past 10 years. He drinks alcohol occasionally, not a heavy drinker. No recreational drug use. His father has a history of atrial fibrillation. In the ED, initial EKG showed atrial fibrillation with rapid ventricular rate. Brain CT showed no acute intracranial abnormality. Chest X ray showed no acute pulmonary processes. CBC showed WBC of 11.4, hemoglobin 18, hematocrit 51.8, platelet 312. CMP showed sodium 142, potassium 3.4, chloride 105, carbon dioxide 24, BUN 9, creatinine 1.21, glucose 120. Initial troponin was 0.012 which subsequently increased to 0.057 the most recent troponin. Other than the hypertension, patient does not have other medical problems, no history of heart disease or arrythmias. TSH was 0.641. His current heart rate is sl ightly tachycardia in the 120s. Normal respiratory rate. Most recent BP was 144/120. O2 saturation at 98% on room air. 08/12/2024 Patient examined this morning at the bedside. Patient currently denies chest pain or pressure. He denies shortness of breath. Patient remains in atrial fibrillation with controlled ventricular rate. Blood pressure elevated this morning at 165/107. MRI completed revealing acute/subacute CVA involving left anterior cerebral hemisphere in the distribution of the posterior inferior cerebellar artery. Echocardiogram completed revealing ejection fraction 55 to 60%, trace to mild MR. PHYSICAL EXAM: VITAL SIGNS: Reviewed. GENERAL: Well-developed in no acute distress. NECK: Supple. No JVD or thyromegaly LUNGS: Respirations even and unlabored. Lungs essentially clear to auscultation bilaterally. HEART: Irregular rate and rhythm. S1 and S2 heard. EXTREMITIES: Normal range of motion. No clubbing or cyanosis. Peripheral pulses intact. No lower extremity edema ASSESSMENT: New onset atrial fibrillation with RVR Hypertensive emergency Elevated troponins, likely type II [place] secondary to A-fib with RVR and hypertensive emergency, no evidence of acute coronary syndrome Headache Acute/subacute CVA per MRI Occasional alcohol use Nicotine dependence PLAN: Continue telemetry monitoring 2D echo obtained and reviewed Increase losartan to 50 mg daily and add amlodipine 5 mg daily for optimal blood pressure control as blood pressure this morning remains elevated at 165/107 Neurology following. Neurology recommendations to hold on initiating anticoagulation. From a cardiac standpoint, recommend anticoagulation due to atrial fibrillation. However will wait until cleared by neurology. Further recommendations pending patient course Nurse practitioner note has been reviewed by physician. Signing provider agrees with the documented findings, assessment, and plan of care documented by GRAPHIC DESIGN TEACHER as a scribe. Objective - Vital Signs Vital signs: Vital Signs Temp 98.1 F 08/12/24 11:10 Pulse 86 08/12/24 11:10 Resp 16 08/12/24 11:10 BP 111/85 08/12/24 11:10 Pulse Ox 98 08/12/24 11:10 FiO2 Intake & Output 08/11/24 08/12/24 08/12/24 18:59 06:59 18:59 Intake Total 540 Balance 540 Weight 61.7 kg Intake: Oral 540 Other: Voiding Method Toilet Toilet - Labs CBC & Chem 7: 08/12/24 06:02 08/12/24 06:02 Labs: Abnormal Lab Results - Last 24 Hours (Table) 08/12/24 08/12/24 Range/Units 06:02 06:02 WBC 16.7 H (3.8-10.6) k/uL Neutrophils # 13.4 H (1.3-7.7) k/uL Potassium 3.4 L (3.5-5.1) mmol/L Glucose 130 H (74-99) mg/dL
--- NOTE | 2024-08-12 11:59 | PN ---
PROGRESS NOTE HISTORY: A 39-year-old male who came into the hospital for possible stroke. His brain MRI shows acute to subacute CVA of the left anterior cerebellar hemisphere in the distribution of the posterior inferior cerebral artery, has restricted diffusion across the midline to the right cerebellar. He also has parasinus disease. Cardiology consult appreciated. Angiography CT reviewed. The headache is being treated with pain medicines. PHYSICAL EXAMINATION: VITAL SIGNS: Temperature 98.1, pulse 86, respiratory rate 16 to 18, blood pressure 111/85, O2 98% on room air. ASSESSMENT: Acute to subacute CVA of the inferior cerebral artery, generalized weakness, right- sided weakness, COPD, hypertension, leukocytosis, unclear etiology. We will work him up for possible pneumonia, aspiration pneumonia versus UTI. Paraspinal disease, started him on some antibiotics. PROGNOSIS: Guarded. Get Infectious Disease involved. His cholesterol was reviewed. Thyroid was reviewed. He has elevated troponins. Cardiology reviewed him. Neurology is working him up for headaches. CT of the brain is negative. Neurologist to see him for the possible headaches. He has atrial fibrillation with RVR, LVH, converted to sinus rhythm, on and off, intermittent. Echo was done and interpreted due to atrial fibrillation. Rehab consult for him to go to rehab. MMODL / IJN: [id number] /
[2024-08-12] MEDS ORDERED: SODIUM CHLORIDE 0.9% 1,000 ML IV SCH (12:09)
--- NOTE | 2024-08-12 13:18 | CT ---
EXAMINATION TYPE: CT brain wo con CT DLP: 1096.4 mGycm, Automated exposure control for dose reduction was used. DATE OF EXAM: 08/12/2024 1:00 PM COMPARISON: MR brain 08/11/2024, CT brain 08/10/2024, 10/21/2021 CLINICAL INDICATION:Male, 39 years old with history of acute CVA, Dizziness, F/U CVA TECHNIQUE: Brain: Multiple axial CT images of the brain were obtained without IV contrast. . Coronal and sagitta l reformats reviewed. FINDINGS: Brain: Extra-axial spaces: No abnormal extra-axial fluid collections. Diffuse loss of the peripheral sulci f rom prior examination. Ventricular system: Diffuse enlargement of the lateral and third ventricle. Cerebral parenchyma: No acute intraparenchymal hemorrhage. The supratentorial nolasco-white junction is well differentiated. Cerebellum: Hypoattenuating appearance of the left cerebellar hemisphere with mild involvement of the right cerebellar hemisphere near midline. There is loss of nolasco-white differentiation in this region . There is mass effect upon the fourth ventricle and basilar cisterns. Mass effect: No evidence of midline shift. Intracranial vasculature: unremarkable Soft tissues: Normal. Calvarium/osseous structures: No depressed skull fracture. Paranasal sinuses and mastoid air cells: Mild scattered paranasal sinus disease. Mastoid air cells ar e clear. Visualized orbits: Orbital contents are intact. IMPRESSION: Acute/subacute ischemia primarily involving the left cerebellar hemisphere with some medial involveme nt of the right cerebellar hemisphere. This corresponds to MRI performed yesterday. No definitive barbara dence for acute hemorrhage. Edema in this region causes mass effect upon the fourth ventricle and bas al cisterns. Resultant hydrocephalus with diffuse cerebral edema. [facility], , 08/12/2024 1:16 PM
[2024-08-12] MEDS: MANNITOL 20% IV ONE (13:54)
[2024-08-12] MEDS: SALINE IV ONE (13:54)
[2024-08-12] MEDS: levETIRAcetam IV 500 MG/5 ML VIAL IVP STA (14:02)
[2024-08-12 14:48] LABS: Amphetamine Screen,Urine Not Detected (NotDetected); Barbiturate Screen,Urine Not Detected (NotDetected); Benzodiazepines Screen,Urine Not Detected (NotDetected); Cocaine Screen,Urine Not Detected (NotDetected); Methadone Screen, Urine Not Detected (NotDetected); Opiate Screen,Urine Detected (NotDetected); Oxycodone Screen, Urine Not Detected (NotDetected); Phencyclidine Screen,Urine Not Detected (NotDetected); Tricyclic Antidepressant,Urine Not Detected (NotDetected); Urn Cannabinoid Scrn Not Detected (NotDetected)
[2024-08-12 15:11] VITALS: BP 195/115; PULSE 80; RESP 15
[2024-08-12] MEDS ORDERED: DOXYCYCLINE 100 MG CAP PO SCH (21:00)
[2024-08-13] MEDS ORDERED: LOSARTAN 50 MG TAB PO SCH (09:00)
--- NOTE | 2024-08-13 09:01 | DS ---
DISCHARGE SUMMARY A 39-year-old white male came to the hospital with atrial fibrillation with RVR, sphenoid sinus infection. He was found to have a stroke to the inferior cerebral artery. He was then found to have hydrocephalus for which he was transferred down to the [facility]. I think he is going to go to [facility] for neurosurgery evaluation due to the hydrocephalus in the brain. Dr. Villanueva discussed with the neurosurgeon on transfer the patient to [facility] in [place] admission for neurosurgery evaluation for hydrocephalus. Please see further orders. MEDICATIONS: On discharge: 1. Amlodipine 5 mg daily. 2. Aspirin 325 daily. 3. Doxycycline 100 b.i.d., sinusitis. 4. Losartan 50 daily. 5. Metoprolol succinate 50. DICTATION ENDS HERE NASREEN / JOHANAN: [id number] /
--- NOTE | 2024-08-13 11:57 | P.PN ---
Subjective Progress Note Date: 08/12/24 Patient had undergone MRI of the brain last night. It revealed acute/subacute CVA involving the left anterior cerebellar hemisphere in the distribution of the posterior inferior cerebellar artery. There is restricted diffusion does cross midline to the right cerebellar hemisphere slightly. I personally reviewed MRI, agree with the findings. The basal cisterns, and ventricular systems were patent. I had spoken to the nurse Param at 11:45 PM last night (08/11/2024), informed to maintain blood pressure <180/100. Recommended to contact cardiology if the blood pressure goes up for appropriate management. Also recommended to keep head end of the bed at 30 degree. He mentioned that patient is ne urologically stable, with NIH stroke scale of 2, which was present earlier as well. He does have a headache, but has been present for last couple days. Patient was neurologically stable as how I saw him earlier. Also recommended to have neurochecks performed every [address] an order for CT head at 8 AM in the morning. Also strongly instructed to call me at any time, if there is any neurostatus changes, and also to do a stat CT head anytime at night, if his neuro status changes. I came to see patient this morning. CT head was not done yet. Patient appears to be clinically worse. Patient appears somewhat lethargic, but arousable. Sometimes mumbles nonsensical speech, but other times becomes more clear headed. Patient continues to have headache which is very intense, but improves 8/10 with the pain medication. No IV fluids were running. Patient has not had any more vomiting episodes. Patient's family was also present, who mentions that patient has been having some hallucinations. CBC with WBC 16.7 hemoglobin 16.3 platelets are 321. Potassium 3.4, but normal renal functions and sodium 139. Urine drug screen positive for opiate. Objective - Vital Signs Vital signs: Vital Signs Temp 98.1 F 08/12/24 11:10 Pulse 86 08/12/24 11:10 Resp 16 08/12/24 11:10 BP 111/85 08/12/24 11:10 Pulse Ox 98 08/12/24 11:10 FiO2 Intake & Output 08/11/24 08/12/24 08/12/24 18:59 06:59 18:59 Intake Total 540 Balance 540 Weight 61.7 kg Intake: Oral 540 Other: Voiding Method Toilet Toilet - Exam On examination patient is lethargic, very somnolent. He does arouse to calling his name. He sometimes mumbles, but other times becomes more clearheaded and speaks clearly. Able to recognize his sister. He was oriented. Continues to have severe headache. Speech and language functions otherwise normal. Patient can name and repeat. On cranial examination pupils are equal, round and reactive to light. Extraocular muscles are intact. Visual brambila are full with no neglect. Face is symmetric. Tongue protrudes to the midline. On muscle strength testing, patient has mild left pronator drift. Otherwise the strength is normal in arms and legs. Patient continues to have ataxia in the left upper extremity. Sensory to touch is equal with no neglect. Plantars are withdrawal. Gait deferred. - Labs CBC & Chem 7: 08/12/24 06:02 08/12/24 06:02 Labs: Abnormal Lab Results - Last 24 Hours (Table) 08/12/24 08/12/24 Range/Units 06:02 06:02 WBC 16.7 H (3.8-10.6) k/uL Neutrophils # 13.4 H (1.3-7.7) k/uL Potassium 3.4 L (3.5-5.1) mmol/L Glucose 130 H (74-99) mg/dL Assessment and Plan Assessment: * Acute/subacute ischemic stroke involving the left anterior cerebellar hemisphere in the distribution of the posterior inferior cerebellar artery. There is some restricted diffusion does cross midline to the right cerebellar hemisphere. Patient's neurological status have got worse overnight. Rule out hydrocephalus. Acute CVA likely related to cardioembolism. No evidence of carotid or vertebral artery dissection. * New onset atrial fibrillation * Hypertension, recently worse * Elevated cardiac enzymes * History of dental abscess, treated * Tobacco use Plan: * MRI of the brain without contrast, revealed acute/subacute CVA involving the left anterior cerebellar hemisphere in the distribution of the posterior inf erior cerebellar artery. There is restricted diffusion does cross the midline to the right cerebellar hemisphere slightly. I personally reviewed MRI agree with the findings. * 2-D echo revealed LVEF 50 to 55%. Left ventricular cavity size is normal. Mildly increased septal wall thickness. Normal left and right atrial size. No thrombus. No valvular abnormalities. * CTA head and neck was done, which revealed no evidence of dissection of the cervical internal carotid arteries or vertebral arteries or any evidence of significant stenosis at the carotid bifurcations. No evidence of high-grade stenosis or intracranial aneurysm. Mildly enlarged bilateral jugular lymph nodes which may be reactive. Paranasal sinus disease. I personally reviewed CTA of head and neck. No evidence of vertebral artery dissection. * Await repeat CT head. Changed to stat. * Fasting a.m. lipid panel cholesterol 184, LDL 118, HDL 40, triglycerides 125. Start Lipitor 80 mg daily. * Hemoglobin A1c 5.6. * Continue aspirin 325 mg daily. No heparin because of large cerebellar CVA, and risk of hemorrhagic conversion. * Neuro checks every 2 hours * Telemetry monitoring rule out any arrhythmia * PT, OT, speech therapy * DVT prophylaxis: Heparin 5000 units subcu every 8 hours * Recommend complete tobacco cessation. Addendum: CT head revealed acute/subacute ischemia primarily involving the left cerebellar hemisphere with some medial involvement of the right cerebellar hemisphere. This corresponds to MRI performed yesterday. No definitive evidence of acute hemorrhage. Edema in this region causes mass effect upon the fourth ventricle and basal cisterns. Resultant hydrocephalus with diffuse cerebral edema. I personally reviewed CT head, agree with the findings. I immediately contacted Dr. Gordon neurointervention at [facility]. He recommended patient to be given mannitol 1 g/kg IV x 1 dose. Recommended transfer to [facility]. We checked different Air carriers, and one of them was not available and the other one was taking 1 hour 10 minutes to arrive. Ground ambulance was available immediately. Therefore patient was arranged for ground transfer to [facility]. Double IV lines was placed by the nursing staff. Mannitol started by ICU nurse. Had multiple times communication with neurointervention team Dr. Gordon and JOSE Butt. Patient transferred to [facility] in critical, but stable condition as above. Patient left [facility] at about 2:10 PM. I spent 90 minutes in coordinating care. Also discussed with primary physician in detail. Time with Patient: Greater than 30
--- NOTE | 2024-08-13 15:27 | P.CONS ---
History of Present Illness - Reason for Consult Consult date: 08/12/24 Leukocytosis Requesting physician: Darell Simpson - Chief Complaint Headache x few days - History of Present Illness Patient is a 39-year-old male with a past medical history significant for hypertension presented to the hospital 2 days ago for evaluation of headache and this patient headache apparently has been getting worse for few days before presenting to the hospital mostly on the left side of the head patient on presentation to hospital was noted to be in hypertensive emergency with significantly weighted blood pressure patient was afebrile and no fever have been called subsequently patient was not tachycardic or hypotensive patient did have white to 11.4 on admission that is up to 16.7 today prompted this infectious disease consultation patient did have a CT of the brain on admission no acute intracranial CT normality paranasal sinus disease, patient did have a angiography CT no evidence of dissection or high-grade stenosis subsequently he did have an MRI of the brain that has been suggestive of acute/subacute CVA involving the left anterior cerebellar hemisphere in the distribution of the posterior inferior cerebral artery patient headaches seem to have slightly decreased intensity and the patient denies having any rigors or chills no URI symptoms no chest pain shortness of breath or cough no abdominal pain or diarrhea. Review of Systems Positive point and negatives has been mentioned in the HPI, complete review of systems was performed and all other systems are negative Past Medical History Past Medical History: Hypertension History of Any Multi-Drug Resistant Organisms: None Reported Past Surgical History: Cholecystectomy Past Psychological History: No Psychological Hx Reported Smoking Status: Current every day smoker Past Alcohol Use History: Occasional Past Drug Use History: None Reported - Past Family History Father Family Medical History: AFIB, CVA/TIA Additional Family Medical History / Comment(s): multiple strokes Medications and Allergies Home Medications Medication Instructions Recorded Confirmed Type Aspirin 325 mg PO DAILY tab 08/12/24 Rx Doxycycline [Vibramycin] 100 mg PO BID cap 08/12/24 Rx Losartan [Cozaar] 50 mg PO DAILY tab 08/12/24 Rx Metoprolol Succinate (ER) [Toprol 50 mg PO DAILY tab 08/12/24 Rx XL] amLODIPine [Norvasc] 5 mg PO DAILY tab 08/12/24 Rx Allergies Allergy/AdvReac Type Severity Reaction Status Date / Time Penicillins Allergy Rash/Hives Verified 08/11/24 07:44 Physical Exam Vitals: Vital Signs Temp Pulse Pulse Pulse Pulse Resp BP 08/12/24 11:10 98.1 F 86 16 08/12/24 08:00 97.2 F L 80 16 08/12/24 06:55 98.0 F 81 16 08/12/24 04:00 98.2 F 100 18 08/12/24 02:00 104 H 106 H 89 16 08/12/24 00:00 98.3 F 89 16 08/11/24 21:30 98.5 F 104 H 106 H 16 08/11/24 20:43 99.0 F 104 H 19 154/101 08/11/24 20:01 92 19 154/101 08/11/24 19:21 99 19 152/111 08/11/24 19:00 98.4 F 78 17 151/78 08/11/24 17:00 89 18 164/113 08/11/24 16:57 89 18 164/113 08/11/24 15:07 130 H 18 132/98 BP Pulse Ox 08/12/24 11:10 111/85 98 08/12/24 08:00 165/107 98 08/12/24 06:55 178/121 98 08/12/24 04:00 167/100 94 L 08/12/24 02:00 08/12/24 00:00 162/104 97 08/11/24 21:30 178/116 98 08/11/24 20:43 99 08/11/24 20:01 08/11/24 19:21 08/11/24 19:00 96 08/11/24 17:00 08/11/24 16:57 08/11/24 15:07 Intake and Output 08/11/24 08/12/24 08/12/24 22:59 06:59 14:59 Intake Total 540 Balance 540 Intake: Oral 540 Other: Voiding Method Toilet Toilet Toilet Weight 63.503 kg 61.7 kg GENERAL DESCRIPTION: Middle-aged male lying in bed, no distress. No tachypnea or accessory muscle of respiration use. HEENT: Shows Pallor , no scleral icterus. Oral mucous membrane is dry. No pharyn geal erythema or thrush NECK: Trachea central, no thyromegaly. LUNGS: Unlabored breathing. Clear to auscultation anteriorly. No wheeze or crackle. HEART: S1, S2, regular rate and rhythm. No loud murmur ABDOMEN: Soft, no tenderness , guarding or rigidity, no organomegaly EXTREMITIES: No edema of feet. SKIN: No rash, no masses palpable. NEUROLOGICAL: The patient is sleepy but arousable, mood and affect normal. Results CBC & Chem 7: 08/12/24 06:02 08/12/24 06:02 Labs: Abnormal Lab Results - Last 24 Hours (Table) 08/12/24 08/12/24 Range/Units 06:02 06:02 WBC 16.7 H (3.8-10.6) k/uL Neutrophils # 13.4 H (1.3-7.7) k/uL Potassium 3.4 L (3.5-5.1) mmol/L Glucose 130 H (74-99) mg/dL Assessment and Plan (1) Leukocytosis Status: Acute Code(s): D72.829 - ELEVATED WHITE BLOOD CELL COUNT, UNSPECIFIED SNOMED Code(s): 943573026 Plan: 1patient with elevated white count of 16,000 in this patient presented to hospital with headache and has been diagnosed with acute/subacute CVA involving the left anterior cerebellar hemisphere patient is not running any fever he does not look toxic and do not have any sign or symptom suspicious for infectious etiology questionable reactive. 2we will go ahead and check a blood culture CRP and procalcitonin. If the patient spike any fever nursing staff to call me at that time patient be started on empiric antibiotic therapy for now hold on starting any empiric antibiotic therapy as no clear focus of infection and the patient does not look toxic. We will follow on clinical condition and cultures to further adjust medication if needed Thank you for this consultation we will follow the patient along with you Dictation was produced using Message Busation software. please excuse any grammatical, word or spelling errors. Time with Patient: Greater than 30
== END 2024-08-12 14:16 | disposition home or self-care (01) ==
LOC: EC 17:27 → 3SCARD 08-11 00:39 → INTOOBSV 08-11 00:40 → OBSVTOIN 08-11 00:40 → 3SCARD 08-11 00:45 → UNDODISOB 08-12 14:16 → UNDODISIN 08-12 14:16
PROVIDERS: ADMIT Family Medicine; ATTEND Family Medicine
DX: I48.91 Unspecified atrial fibrillation (principal); I21.4 Non-ST elevation (NSTEMI) myocardial infarction; I16.1 Hypertensive emergency; I63.89 Other cerebral infarction; G93.6 Cerebral edema; G91.9 Hydrocephalus, unspecified; G81.91 Hemiplegia, unspecified affecting right dominant side; R29.702 NIHSS score 2; J32.2 Chronic ethmoidal sinusitis; J44.9 Chronic obstructive pulmonary disease, unspecified; R27.0 Ataxia, unspecified; I10 Essential (primary) hypertension; F17.210 Nicotine dependence, cigarettes, uncomplicated; Z88.0 Allergy status to penicillin; Z90.49 Acquired absence of other specified parts of digestive tract
CPT/HCPCS: 96372 ×2; 96375 ×2; 96361 ×2; 96374; 99285; 36415; 93005; 93306; 97162; 97166; 80061; 80053; 80048; 84443; 83735; 84484 ×2; 85025 ×2; 85610; 85730; 80306; 83036; 71046; 70496; 70450 ×2; 70498; 70551; G0378 ×2; J0360; J1644 ×2; J2405; J1953; J1171; Q9967; J1920